=== PATIENT | male | born 1995 | race Caucasian/White ===

== ENCOUNTER 2017-06-03 11:54 | Emergency (ER) | payer SELFPAY ==
[2017-06-03 12:11] VITALS: TEMP 97.8
--- NOTE | 2017-06-03 12:31 | ED.PDOC ---
History of Present Illness - General Chief Complaint: Lower Extremity Injury Stated Complaint: toe injury Time Seen by Provider: 06/03/17 12:31 Source: patient Exam Limitations: no limitations - History of Present Illness Initial Comments: [place] 21 y/o male stated that he was using his electric saw cuttinng wood and accidentally slipped off lacerating his right toe. His Td up to date Occurred: yesterday - night at about 2000h Pain - Lower Extremity: moderate: Right Foot - toe Method of Injury: incised Improving Factors: nothing Worsening Factors: nothing Allergies/Adverse Reactions: Allergies Codeine Allergy (Verified 06/03/17 12:11) Home Medications: Ambulatory Orders Cephalexin 1,000 mg PO BID #40 cap 06/03/17 Tramadol HCl 50 mg PO Q4HR #20 tab 06/03/17 Review of Systems - Review of Systems Constitutional: States: no symptoms reported EENTM: States: no symptoms reported Respiratory: States: no symptoms reported Cardiology: States: no symptoms reported Musculoskeletal: States: see HPI Past Medical History (General) - Patient Medical History Hx Seizures: No Hx Asthma: No Hx Congestive Heart Failure: No Hx Diabetes: No Surgical History: no surgical history - Vaccination History Hx Tetanus, Diphtheria Vaccination: Yes - current Hx Influenza Vaccination: No - Social History Hx Tobacco Use: Yes Family Medical History - Family History Father Family History: Unknown Living Status: Unknown Physical Exam - Physical Exam General Appearance: Alert, Frail Eyes, Ears, Nose, Throat: normal ENT inspection, pharynx normal Neck: full range of motion, supple Cardiovascular/Respiratory: regular rate, rhythm, no M/R/G, normal peripheral pulses, normal breath sounds Gastrointestinal/Abdominal: non-tender, no organomegaly Back: no vertebral tenderness Thigh/Hip: no evidence of injury Leg: no evidence of injury Knee: no evidence of injury Ankle: no evidence of injury Foot: laceration - right toe, nail injury - right toe Neuro/Tendon: normal sensation, normal motor functions, no evidence tendon injury Mental Status: alert, oriented x 3 Skin: normal color, warm/dry Progress - Progress Progress: 06/03/17 12:40 Vital Signs - 8 hr 06/03/17 12:07 Temperature 97.8 F Pulse Rate [ 77 Right Brachial] Respiratory 20 Rate Blood Pressure 123/63 [Right Arm] O2 Sat by Pulse 98 Oximetry - EKG/XRAY/CT XRAY: toe - chip fracture distal phalanx right toe Departure - Departure Clinical Impression: Laceration of skin of toe Qualifiers: Encounter type: initial encounter Qualified Code(s): S91.119A - Laceration without foreign body of unspecified toe without damage to nail, initial encounter Fracture of toe of right foot Qualifiers: Encounter type: initial encounter Toe: great toe Fracture type: open Phalanx: distal Fracture alignment: nondisplaced Qualified Code(s): S92.424B - Nondisplaced fracture of distal phalanx of right great toe, initial encounter for open fracture Time of Disposition: 14:14 Disposition: Discharge to Home or Self Care Condition: Good Departure Forms: ED Discharge - Pt. Copy, Patient Portal Self Enrollment Instructions: Skin Wound Prescriptions: Tramadol HCl 50 mg PO Q4HR #20 tab Cephalexin 1,000 mg PO BID #40 cap Home Medications: Ambulatory Orders Cephalexin 1,000 mg PO BID #40 cap 06/03/17 Tramadol HCl 50 mg PO Q4HR #20 tab 06/03/17 Additional Instructions: Elevate right foot 20 degrees at bedtime until better;Return to emergency room as needed
--- NOTE | 2017-06-03 13:35 | RAD ---
EXAM DESCRIPTION: Toes, right CLINICAL HISTORY: 21 years Male pain COMPARISON: None. TECHNIQUE: Three views of the right toes. FINDINGS: Small osseous density on the oblique view along the medial aspect of the distal phalanx could represent a small fracture fragment or small foreign body. No other areas suspicious for fracture identified. There appears to be some disruption of the soft tissues at the tip of the great toe. IMPRESSION: Disruption of the soft tissues at the tip of the great toe with small fracture fragment or foreign body adjacent to the medial aspect of the distal phalanx. Electronically signed by: Lex Manzano MD 06/03/2017 1:34 PM CDT
[2017-06-03] MEDS ORDERED: CHLORHEXIDINE GLUCONATE 4 % 15 ML UD TOP ONE (13:53)
[2017-06-03] MEDS ORDERED: LIDOCAINE 1% 10 ML VIAL INJ ONE (13:53)
[2017-06-03] MEDS: ceFAZolin SODIUM 1 GM VIAL IM ONE (13:57)
[2017-06-03] MEDS: traMADol HCL 50 MG TAB PO ONE (13:57)
[2017-06-03] MEDS ORDERED: WATER FOR INJ 10 ML VIAL INJ ONE (14:00)
[2017-06-03 14:14] VITALS: BP 124/71; O2SAT 97
== END 2017-06-03 14:34 | disposition home or self-care (01) ==
LOC: ER 11:54
DX: S92.424B Nondisplaced fracture of distal phalanx of right great toe, initial encounter for open fracture (principal); Z87.891 Personal history of nicotine dependence; Z88.6 Allergy status to analgesic agent; W29.8XXA Contact with other powered hand tools and household machinery, initial encounter; Y92.9 Unspecified place or not applicable
CPT/HCPCS: 73660; A4216; J0690